=== PATIENT | female | born 1955 | race American Indian/Alaskan Native ===

== ENCOUNTER 2021-03-12 12:14 | Observation (INO) | payer MEDICARE ==
[2021-03-12] MEDS ORDERED: SODIUM CHLORIDE IRRI 500 ML 500 ML IR ONE (12:15)
[2021-03-12] MEDS ORDERED: BUPIVACAINE/PF (0.5%) 5 MG/1 ML 30 ML VIAL INFILTRATI ONE (12:16)
[2021-03-12] MEDS ORDERED: LIDOCAINE (1%) 10 MG/1 ML VIAL 20 ML MDV ONE (12:16)
[2021-03-12] MEDS ORDERED: ceFAZolin/Water 2 GM/20 ML 2 GM/20 ML SYRINGE IV ONE (12:16)
[2021-03-12] MEDS ORDERED: SODIUM CHLORIDE IRRI 1000 ML 1,000 ML, .VANCOMYCIN VIAL 1,000 MG IR NR (12:34)
[2021-03-12] MEDS ORDERED: HYDROmorphone 1 MG/1 ML INJ ONE (12:57)
[2021-03-12] MEDS ORDERED: ONDANSETRON 4 MG/2 ML INJ ONE (12:57)
[2021-03-12] MEDS ORDERED: LIDOCAINE MPF (2%) 20 MG/1 ML VIAL 5 ML ONE (12:57)
[2021-03-12] MEDS ORDERED: KETAMINE/STERILE WATER 50 MG/ML SYRINGE ONE (12:58)
[2021-03-12] MEDS ORDERED: propofoL 200 MG/20 ML VIAL IV ONE ×4 (12:58)
[2021-03-12] MEDS ORDERED: ePHEDrine SULFATE 50 MG/1 ML INJ ONE (12:58)
[2021-03-12] MEDS ORDERED: MIDAZOLAM 2 MG/2 ML INJ ONE (13:24)
[2021-03-12] MEDS ORDERED: SODIUM CHLORIDE 0.9% 1000 ML 1,000 ML ONE (13:43)
[2021-03-12] MEDS ORDERED: SODIUM CHLORIDE 0.9% 500 ML 500 ML ONE (14:00)
[2021-03-12 14:06] LABS: Basophils # (Auto) 0.1 K/mm3 (0.0-0.1); Basophils % (Auto) 2.2 % (0.0-1.8); Hemoglobin 13.2 gm/dl (10.1-14.3); Lymphocytes # (Auto) 1.6 K/mm3 (1.2-5.4); Lymphocytes % (Auto) 37.6 % (13.4-35.0); Mean Corpuscular HGB Conc 33 % (30-34); Mean Corpuscular Volume 84 fl (79-97); Monocytes # (Auto) 0.2 K/mm3 (0.0-0.8); Monocytes % (Auto) 4.7 % (0.0-7.3); Platelet Count 209 K/mm3 (140-440); Red Blood Count 4.76 M/mm3 (3.65-5.03)
[2021-03-12] MEDS ORDERED: ONDANSETRON 4 MG/2 ML INJ IV PRN (14:06)
[2021-03-12] MEDS ORDERED: HYDROcodone/ACETAMINOPHEN 5-325 MG TAB PO PRN (14:06)
[2021-03-12 14:11] LABS: Blood Urea Nitrogen 11 mg/dL (7-17); Calcium 9.5 mg/dL (8.4-10.2); Hemolysis Index 1
[2021-03-12] MEDS ORDERED: HEPARIN/NS 5000 UNIT/500ML 500 ML IR ONE (14:14)
--- NOTE | 2021-03-12 14:16 | Anesthesia Consultation ---
Anesthesia Consult and Med Hx Date of service: 03/12/21 - Airway Anesthetic Teeth Evaluation: Dentures (upper and lower) ROM Head & Neck: Adequate Mental/Hyoid Distance: Adequate Mallampati Class: Class II Intubation Access Assessment: Probably Good - Pre-Operative Health Status ASA Pre-Surgery Classification: ASA3 Proposed Anesthetic Plan: MAC - Pulmonary Hx Smoking: No Hx Respiratory Symptoms: No - Cardiovascular System Hx Hypertension: Yes Hx Heart Attack/AMI: No (dilated CMP EF 25-30%; recent normal perfusion study) Hx Percutaneous Transluminal Coronary Angioplasty (PTCA): No Hx Cardia Arrhythmia: Yes Hx Pacemaker: No Hx Internal Defibrillator: No Hx Valvular Heart Disease: Yes (moderate MR) - Central Nervous System CVA: No - Endocrine Hx Renal Disease: No Hx Liver Disease: No Hx Insulin Dependent Diabetes: No Hx Non-Insulin Dependent Diabetes: No Hx Thyroid Disease: No - Additional Comments Anesthesia Medical History Comments: No hx anesthetic complications.
--- NOTE | 2021-03-12 14:17 | Anesthesia Day of Surgery ---
Anesthesia Day of Surgery - Day of Surgery Patient Examined: Yes Patient H&P Reviewed: Yes Patient is NPO: Yes
[2021-03-12 14:22] LABS: BUN/Creatinine Ratio 18
[2021-03-12 14:37] LABS: INR 0.91 (0.87-1.13)
[2021-03-12] MEDS ORDERED: ACETAMINOPHEN 325 MG TAB PO PRN (15:00)
[2021-03-12] MEDS ORDERED: .VANCOMYCIN VIAL 1,000 MG in SODIUM CHLORIDE IRRI 1000 ML 1,000 ML IRRIGATION ONE (16:47)
[2021-03-12] MEDS: HYDROcodone/ACETAMINOPHEN 5-325 MG TAB PO PRN (20:42)
--- NOTE | 2021-03-12 21:05 | XRay Report ---
XR chest 1V ap INDICATION / CLINICAL INFORMATION: ICD. COMPARISON: None available. FINDINGS: SUPPORT DEVICES: Biventricular left-sided cardiac pacemaker/AICD is present. HEART /PULMONARY VASCULATURE: The heart is enlarged. Pulmonary vasculature is congested. LUNGS / PLEURA: Hazy pulmonary opacities likely reflect edema. There is no focal airspace consolidati on. Trace bibasilar pleural effusions are suspected. No pneumothorax. ADDITIONAL FINDINGS: No significant additional findings. IMPRESSION: 1. CHF/volume overload with pulmonary edema and trace bibasilar pleural effusions. 2. Biventricular left-sided cardiac conduction device. Signer Name: Shar العراقي MD Signed: 03/12/2021 6:15 PM Workstation Name: [id number]
[2021-03-12] MEDS: carvediloL 25 MG TAB PO SCH (21:17)
[2021-03-12] MEDS: ceFAZolin/NS 1 GM/50 ML 1 GM/50 ML BAG IV SCH (21:54)
[2021-03-13] MEDS: HYDROcodone/ACETAMINOPHEN 5-325 MG TAB PO PRN (04:21)
[2021-03-13] MEDS: ceFAZolin/NS 1 GM/50 ML 1 GM/50 ML BAG IV SCH (05:17)
[2021-03-13 06:04] LABS: BUN/Creatinine Ratio 17; Blood Urea Nitrogen 12 mg/dL (7-17); Calcium 8.7 mg/dL (8.4-10.2); Hemolysis Index 3
[2021-03-13] MEDS ORDERED: FUROSEMIDE 40 MG TAB PO SCH (10:00)
[2021-03-13] MEDS ORDERED: LOSARTAN 25 MG TAB PO SCH (10:00)
[2021-03-13] MEDS ORDERED: POTASSIUM CHLORIDE ER 10 MEQ TAB PO SCH (10:00)
[2021-03-13] MEDS ORDERED: hydroCHLOROthiazide 12.5 MG CAP PO SCH (10:00)
--- NOTE | 2021-03-13 10:09 | Short Stay Summary ---
Short Stay Documentation Date of service: 03/13/21 - History H&P: obtained from office - Allergies and Medications Current Medications: Allergies No Known Allergies Allergy (Unverified 03/12/21 12:15) Home Medications Medication Instructions Recorded Confirmed Last Taken Type Furosemide [Lasix] 20 mg PO QDAY 03/12/21 03/12/21 03/11/21 History Losartan [Cozaar] 25 mg PO QDAY 03/12/21 03/12/21 03/11/21 History Potassium Chloride 10 meq PO DAILY 03/12/21 03/12/21 03/11/21 History carvediloL [Coreg] 25 mg PO BID 03/12/21 03/12/21 03/11/21 History Active Medications Acetaminophen (Acetaminophen 325 Mg Tab) 650 mg PO Q4H PRN PRN Reason: Pain MILD(1-3)/Fever >100.5/[place] Hydrocodone Bitart/Acetaminophen (Hydrocodone/Acetaminophen 5-325 Mg Tab) 2 each PO Q6H PRN PRN Reason: Pain, Moderate (4-6) Hydrocodone Bitart/Acetaminophen (Hydrocodone/Acetaminophen 5-325 Mg Tab) 1 each PO Q6H PRN PRN Reason: Pain, Moderate (4-6) Last Admin: 03/13/21 04:21 Dose: 1 each Documented by: Carvedilol (Carvedilol 25 Mg Tab) 25 mg PO BID [facility] Last Admin: 03/12/21 21:17 Dose: 25 mg Documented by: Furosemide (Furosemide 40 Mg Tab) 40 mg PO QDAY [facility] Hydrochlorothiazide (Hydrochlorothiazide 12.5 Mg Cap) 12.5 mg PO QDAY [facility] Losartan Potassium (Losartan 25 Mg Tab) 25 mg PO QDAY [facility] Ondansetron HCl (Ondansetron 4 Mg/2 Ml Inj) 4 mg IV Q8H PRN PRN Reason: Nausea And Vomiting Potassium Chloride (Potassium Chloride Er 10 Meq Tab) 10 meq PO QDAY [facility] Sodium Chloride (Sodium Chloride 0.9% 10 Ml Flush Syringe) 10 ml IV BID [facility] Last Admin: 03/12/21 21:17 Dose: 10 ml Documented by: Sodium Chloride (Sodium Chloride 0.9% 10 Ml Flush Syringe) 10 ml IV PRN PRN PRN Reason: LINE FLUSH - Physical exam Integumentary: other (clean, dry,tegaderm intact, no bleeding or hematoma) - Brief post op/procedure progress note Date of procedure: 03/12/21 Pre-op diagnosis: BIV ICD placment Post-op diagnosis: same Anesthesia: local Estimated blood loss: minimal - Disposition Condition at discharge: Good Disposition: 01 HOME / SELF CARE / HOMELESS Short Stay Discharge Plan Activity: advance as tolerated Diet: low fat, low cholesterol, low salt Wound: keep clean and dry, per your surgeon's advice Additional Instructions: Patient has follow up with device clinic 03/21/2021 at 9:30am at our [place] location Patient has a follow up appointment with Dr. Brito, [facility], on 03/27/2021 at 1:15pm at [facility] location Follow up with: RAMONITA SANTANA MD [Primary Care Provider] - 7 Days Prescriptions: HYDROcodone/APAP 5-325 [[place] 5-325 mg TAB] 1 each PO Q6H PRN #10 tablet PRN Reason: Pain, Moderate (4-6) HYDROcodone/APAP 5-325 [[place] 5-325 mg TAB] 1 each PO Q6H PRN #10 tablet PRN Reason: Pain, Moderate (4-6)
[2021-03-13 10:30] VITALS: BP 129/64
[2021-03-13] MEDS: carvediloL 25 MG TAB PO SCH (10:33)
--- NOTE | 2021-03-14 09:38 | Electrocardiograph Report ---
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
--- NOTE | 2021-03-14 10:04 | Electrocardiograph Report ---
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 Atrial-sensed ventricular-paced rhythm Biventricular paced rhythm Compared to ECG 03/12/2021 12:54:37 PACING IS NEW Sinus rhythm no longer present Ventricular premature complex(es) no longer present Left bundle-branch block no longer present Intraventricular conduction delay no longer present Electronically Signed On 03-14-2021 10:03:54 EDT by Julien Garcia
== END 2021-03-13 14:18 | disposition home or self-care (01) ==
LOC: CATHLABREC 12:14 → 4A 14:06
PROVIDERS: ADMIT Internal Medicine Cardiovascular Disease; ATTEND Internal Medicine Cardiovascular Disease
DX: I42.0 Dilated cardiomyopathy (principal); I44.7 Left bundle-branch block, unspecified; I10 Essential (primary) hypertension; Z95.810 Presence of automatic (implantable) cardiac defibrillator
CPT/HCPCS: 33225; 33249; 36415; 71045; 80048; 85025; 85610; 85730; 93005; 96365; 96366; C1721; C1769; C1777; C1892; C1898; C1900; G0378; J0690; J1170; J1644; J2250; J2405; J2704; J3370; J3490; J7030; J7040; Q9967